=== PATIENT | female | born 1930 | race Caucasian/White ===

== ENCOUNTER 2017-09-18 16:42 | Inpatient (IN) | payer OTHER, MEDICAID ==
[~2017-09-18] VITALS: Ht 154.9 cm; Wt 34.5 kg
[2017-09-18 16:59] LABS: ABSOLUTE BASOPHILS 0.1 thou/uL (0.0-0.2); ABSOLUTE EOSINOPHILS 0.2 thou/uL (0.0-0.7); ABSOLUTE LYMPHOCYTES 1.7 thou/uL (0.8-5.3); ABSOLUTE NEUTROPHILS 5.8 thou/uL (1.6-8.1); BASOPHILS 1.1 %; HEMATOCRIT 41.2 % (37.0-47.0); HEMOGLOBIN 13.7 gm/dL (12.0-15.0); LYMPHOCYTES 19.3 %; MCH 29.6 pg (26.0-34.0); MCHC 33.2 g/dL (28.0-37.0); MCV 89.4 fL (80.0-100.0); MONOCYTES 11.1 %; MPV 8.2 fl. (7.2-11.1); NUCLEATED RBCS 0 /100WBC; PLATELET COUNT* 252 thou/uL (150-400); POLYS 66.5 %; RBC 4.61 mil/uL (4.20-5.00); RDW-CV 13.2 % (10.5-14.5); WBC 8.7 thou/uL (4.0-11.0)
[2017-09-18 17:05] VITALS: BP 206/105
[2017-09-18 17:14] LABS: ANION GAP 9 mmol/L (7-16); BUN 11 mg/dL (7-18); CALCIUM 9.3 mg/dL (8.5-10.1); CHLORIDE 106 mmol/L (98-107); CO2 27 mmol/L (21-32); GLUCOSE 152 mg/dL (70-99); POTASSIUM 3.4 mmol/L (3.5-5.1); SODIUM 142 mmol/L (136-145)
[2017-09-18 17:18] LABS: ALBUMIN 3.8 g/dL (3.4-5.0); ALKALINE PHOSPHATASE 106 U/L (46-116); SGOT 20 U/L (15-37); SGPT 16 U/L (30-65); TOTAL BILIRUBIN 0.4 mg/dL (<0.1-1.0); TOTAL PROTEIN 7.4 g/dL (6.4-8.2); TROPONIN-I LEVEL <0.06 ng/mL (<0.06)
[2017-09-18] MEDS ORDERED: ARICEPT 5 MG TAB5 MG PO (17:24)
[2017-09-18] MEDS ORDERED: LISINOPRIL20 MG PO (17:25)
[2017-09-18 17:30] LABS: PROTIME 9.9 Seconds (9.20-11.50)
[2017-09-18 17:49] LABS: URINE BILIRUBIN NEGATIVE (Negative); URINE BLOOD NEGATIVE (Negative); URINE CLARITY CLEAR; URINE COLOR YELLOW; URINE GLUCOSE-RANDOM NEGATIVE (Negative); URINE KETONES NEGATIVE (Negative); URINE LEUKOCYTES-REFLEX NEGATIVE (Negative); URINE NITRITE-REFLEX NEGATIVE (Negative); URINE PROTEIN NEGATIVE (Negative); URINE UROBILINOGEN 0.2 E.U./dl (0.2-1.0)
[2017-09-18 19:15] LABS: CALCIUM 9.5 mg/dL (8.5-10.1); MAGNESIUM 1.7 mg/dL (1.8-2.4); POTASSIUM 3.4 mmol/L (3.5-5.1)
[2017-09-18 20:21] VITALS: BP 126/70
[2017-09-18 20:30] VITALS: BP 148/72
[2017-09-18 23:53] VITALS: BP 148/72
[2017-09-19] VITALS (10 sets, daily range): BP systolic 152–189; BP diastolic 73–97
[2017-09-19 05:22] LABS: HEMATOCRIT 37.1 % (37.0-47.0); HEMOGLOBIN 12.2 gm/dL (12.0-15.0); MCH 29.3 pg (26.0-34.0); MCHC 32.9 g/dL (28.0-37.0); MCV 89.1 fL (80.0-100.0); MPV 8.2 fl. (7.2-11.1); RBC 4.17 mil/uL (4.20-5.00); RDW-CV 13.5 % (10.5-14.5); WBC 7.3 thou/uL (4.0-11.0)
[2017-09-19 05:51] LABS: CHOLESTEROL 206 mg/dL (<200); HDL CHOLESTEROL 53 mg/dL (>40); LDL CHOLESTEROL 138 mg/dL (<100); TC:HDL 3.9 Ratio (Not establshd); TRIGLYCERIDE 77 mg/dL (<150); VLDL 15 mg/dL (<40)
[2017-09-19 05:56] LABS: SERUM ASSESSMENT CLEAR
[2017-09-19 06:01] LABS: CALCIUM 8.8 mg/dL (8.5-10.1); CREATININE 0.8 mg/dL (0.6-1.3); MAGNESIUM 1.8 mg/dL (1.8-2.4); POTASSIUM 3.5 mmol/L (3.5-5.1)
--- NOTE | 2017-09-19 16:55 | EKG ---
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1930 Requested By: Deep Payne Order Number: [id number] MD: Baldo Macedo Measurements Intervals [place] Rate: 74 P: 63 WV: 156 QRS: -10 QRSD: 88 T: 71 QT: 435 QTc: 483 Interpretive Statements Sinus rhythm Atrial premature complexes Left atrial enlargement Borderline prolonged QT interval Compared to ECG 07/02/2017 16:30:05 Atrial premature complex(es) now present Atrial abnormality now present Electronically Signed On 09-19-2017 16:55:17 CDT by Baldo Macedo [email or web address] <ELECTRONICALLY SIGNED> By: Baldo Macedo MD, [facility] 09/19/17 [id number] Baldo Macedo MD, [facility] /EPI
[2017-09-20] VITALS (9 sets, daily range): BP systolic 144–202; BP diastolic 71–115
--- NOTE | 2017-09-20 14:27 | 2DMMODE ---
[place] [address] 2 D/M-MODE ECHOCARDIOGRAM Name: MICHEAL HIGGINBOTHAMEduardo Room: [address] IN [place]#: [id number] Admission: 09/18/17 Attend Phys: Bayron Quesada Discharge: Date of : 30 Date of Service: 09/20/17 1426 Report #: [id number] THIS REPORT FOR: //name// APPROVED REPORT Study performed: 09/20/2017 10:10:31 EXAM: Comprehensive 2D, Doppler, and color-flow Echocardiogram Patient Location: In-Patient Room #: [facility] Status: routine BSA: 1.36 HR: 102 bpm BP: 190/96 mmHg Rhythm: NSR Other Information Study Quality: Good Indications CVA/TIA Echo Enhancing Agent Indication: Rule out Shunt Agent(s) / Amount(s) Used: Agitated Saline 10 cc 2D Dimensions LVEF(%): 68.88 (>50%) IVSd: 11.81 (7-11mm) LVOT Diam: 19.86 (18-24mm) LVDd: 32.96 mm PWd: 10.45 (7-11mm) Ascending Ao: 29.26 (22-36mm) LVDs: 20.58 (25-40mm) Aortic Root: 30.02 mm Granados's LVEF: 68.88 % Aortic Valve AoV Peak Jimmy.: 1.25 m/s AO Peak Gr.: 6.30 mmHg LVOT Max P.77 mmHg AO Mean Gr.: 3.77 mmHg LVOT Mean P.08 mmHg LVOT Max V: 0.97 m/s AO V2 VTI: 25.11 cm LVOT Mean V: 0.69 m/s MILLY (VTI): 2.00 cm2 LVOT V1 VTI: 16.21 cm Mitral Valve E/A Ratio: 0.61 [place] [address] 2 D/M-MODE ECHOCARDIOGRAM Name: RACHAEL HIGGINBOTHAM Room: [address] IN .R.#: [id number] Admission: 09/18/17 Attend Phys: Bayron Quesada Discharge: Date of : 30 Date of Service: 09/20/17 1426 Report #: [id number] MV Decel. Time: 248.63 ms MV E Max Jimmy.: 0.55 m/s MV PHT: 72.10 ms MVA (PHT): 3.05 cm2 TDI E/Lateral E': 9.17 E/Medial E': 7.86 Medial E' Jimmy.: 0.07 m/s Lateral E' Jimmy.: 0.06 m/s Pulmonary Valve PV Peak Jimmy.: 1.36 m/s PV Peak Gr.: 7.36 mmHg Tricuspid Valve TR Peak Gr.: 31.43 mmHg RVSP: 36.00 mmHg Left Ventricle The left ventricle is normal size. There is normal LV segmental wall motion. Mild to moderate concentric left ventricular hypertrophy. Left ventricular systolic function is normal. The left ventricular ejection fraction is within the normal range. LVEF is 60-65%. Grade I - abnormal relaxation pattern. Right Ventricle The right ventricle is normal size. The right ventricular systolic function is normal. Atria The left atrium size is normal. Interatrial septum is intact without evidence of ASD or PFO. The right atrium size is normal. Aortic Valve Mild aortic valve sclerosis. Mild aortic regurgitation. There is no aortic valvular stenosis. Mitral Valve The mitral valve is normal in structure. Trace mitral regurgitation. No evidence of mitral valve stenosis. Tricuspid Valve The tricuspid valve is normal in structure. Mild tricuspid regurgitation. The RVSP is 35-40 mmHg. Pulmonic Valve The pulmonary valve is normal in structure. There is no pulmonic valvular [place] [address] 2 D/M-MODE ECHOCARDIOGRAM Name: RACHAEL HIGGINBOTHAM Room: [address] IN M.R.#: [id number] Admission: 09/18/17 Attend Phys: Bayron Quesada Discharge: Date of : 30 Date of Service: 09/20/17 1426 Report #: [id number] Great Vessels The aortic root is normal in size. IVC is normal in size and collapses with >50% inspiration Pericardium There is no pericardial effusion. <Conclusion> The left ventricle is normal size. Mild to moderate concentric left ventricular hypertrophy. Left ventricular systolic function is normal. The left ventricular ejection fraction is within the normal range. LVEF is 60-65%. Grade I - abnormal relaxation pattern. The right ventricle is normal size. The left atrium size is normal. Mild aortic valve sclerosis. Mild aortic regurgitation. There is no aortic valvular stenosis. The mitral valve is normal in structure. Trace mitral regurgitation. The tricuspid valve is normal in structure. Mild tricuspid regurgitation. The RVSP is 35-40 mmHg. IVC is normal in size and collapses with >50% inspiration There is no pericardial effusion. There is normal LV segmental wall motion. <ELECTRONICALLY SIGNED> By: Dominic Garcia MD, FACC 09/20/17 1426 1426 1426 Dominic Garcia MD, FACC /INF
[2017-09-21 00:07] VITALS: BP 129/59
[2017-09-21 03:32] VITALS: BP 142/82
[2017-09-21 08:00] VITALS: BP 208/115
[2017-09-21 15:42] VITALS: BP 144/60
[2017-09-21 20:00] VITALS: BP 138/72
[2017-09-22 00:01] VITALS: BP 143/73
[2017-09-22 04:00] VITALS: BP 155/91
[2017-09-22 09:30] VITALS: BP 147/69
[2017-09-22 10:43] LABS: POC CA IONIZED 4.9 mg/dL (4.5-5.3); POC CREATININE 0.9 mg/dL (0.6-1.3); POC HEMOGLOBIN 14.3 g/dL (12.0-17.0); POC POTASSIUM 3.4 mmol/L (3.5-4.9)
[2017-09-22 12:19] VITALS: BP 174/84
[2017-09-22 15:46] VITALS: BP 182/94
[2017-09-23] VITALS: BP 187/142
[2017-09-23 04:00] VITALS: BP 158/95
[2017-09-23 08:00] VITALS: BP 160/86
[2017-09-23 11:26] VITALS: BP 141/91
[2017-09-23 14:42] LABS: URINE BILIRUBIN NEGATIVE (Negative); URINE BLOOD NEGATIVE (Negative); URINE CLARITY CLEAR; URINE COLOR YELLOW; URINE GLUCOSE-RANDOM NEGATIVE (Negative); URINE KETONES 1+ (Negative); URINE LEUKOCYTES-REFLEX TRACE (Negative); URINE NITRITE-REFLEX NEGATIVE (Negative); URINE PROTEIN 1+ (Negative); URINE UROBILINOGEN 0.2 E.U./dl (0.2-1.0)
[2017-09-23 14:55] LABS: SQUAMOUS 0-3 Few /LPF (0-3)
[2017-09-23 14:56] LABS: URINE RBC None Seen /HPF (0-2); URINE WBC-REFLEX 6-15 Few /HPF (0-5)
[2017-09-23 14:57] LABS: CRYSTALS None Seen /LPF (None Seen); HYALINE CASTS 0-3 Few /LPF (None Seen); MUCUS 0-3 Light strn/LPF (None Seen)
[2017-09-23 20:00] VITALS: BP 137/66
[2017-09-24] VITALS: BP 178/93
[2017-09-24 04:20] VITALS: BP 140/67
[2017-09-24 08:00] VITALS: BP 167/64
[2017-09-24 15:01] VITALS: BP 130/69
[2017-09-24 16:32] VITALS: BP 112/50; BP 148/93
[2017-09-24] MEDS ORDERED: LIPITOR40 MG PO (17:20)
[2017-09-24] MEDS ORDERED: ASPIRIN EC81 M1 PO (17:22)
[2017-09-24] MEDS ORDERED: B12INJ IM (17:23)
[2017-09-24] MEDS ORDERED: MACROBID 100 M100 M2 PO (17:28)
[2017-09-24] MEDS ORDERED: MELATONIN5 M1 PO (17:30)
[2017-09-24 17:34] VITALS: BP 148/93
--- NOTE | 2017-09-29 14:26 | CON ---
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 Previous level of function sounds like modified independent to independent with activities of daily living. She does live alone. She is legally blind. Current level of function, there is no data on occupational therapy at this time. She is maximum assistance with physical therapy, ambulating 5 feet. She is currently being seen by Speech Language Pathology, and she is on a mechanical soft diet. She will have ongoing needs with her therapies. MEDICATIONS: Reviewed and are available in the MAR. PAST MEDICAL AND SURGICAL HISTORY: Hypertension, colon cancer, history of 7 stents. SOCIAL HISTORY: No recreational drug use. Every day smoker, 1 pack per day for 70 years. No significant alcohol use. REVIEW OF SYSTEMS: A 14-point review of systems is done and is negative except as mentioned in the HPI, specifically no fever, chest pain, shortness of breath or abdominal pain. PHYSICAL EXAMINATION: GENERAL: Alert, oriented, in no apparent distress. VITAL SIGNS: Reviewed and are stable. HEENT: Head atraumatic, normocephalic. Pupils equal, round, reactive. ABDOMEN: Soft, nontender, nondistended. ALLERGIES: MORPHINE AND PENICILLINS. FAMILY HISTORY: COPD. ASSESSMENT: 1. Bilateral posterior cerebral artery cerebrovascular accident. 2. Legally blind. 3. Alterations in activities of daily living. PLAN: 1. The patient will need ongoing physical and occupational therapy. 2. She may need support at home. She does live alone, [place] [address] CONSULTATION Name: RACHAEL HIGGINBOTHAM Room: [address]#: [id number] Admission: 09/18/17 Attend Phys: Bayron Martinez, Discharge: 09/24/17 Date of : 30 Report #: [id number] bilateral NURSE REVIEWER CVA, so disposition will be important. We will follow. <ELECTRONICALLY SIGNED> By: Elizabeth Reeder DO 09/29/17 1426 1259 [id number] Reeder DO /nt
== END 2017-09-24 18:45 | DRG 64 ==
LOC: M.ERS 16:42 → M.2W 18:19 → M.ICU 18:19 → M.TBA-ER 18:19 → M.2W 19:50 → M.ICU 09-19 16:44 → M.2W 09-20 11:35
PROVIDERS: Family Medicine; Internal Medicine; ADMIT Family Medicine
PROC: B24BZZ4 Ultrasonography of Heart with Aorta, Transesophageal (ICD-10-PCS; principal; 2017-09-20)
DX: I63.133 Cerebral infarction due to embolism of bilateral carotid arteries (principal); G93.41 Metabolic encephalopathy; G81.91 Hemiplegia, unspecified affecting right dominant side; I10 Essential (primary) hypertension; I16.0 Hypertensive urgency; H54.8 Legal blindness, as defined in USA; J44.9 Chronic obstructive pulmonary disease, unspecified; E78.5 Hyperlipidemia, unspecified; R22.1 Localized swelling, mass and lump, neck; F03.90 Unspecified dementia, unspecified severity, without behavioral disturbance, psychotic disturbance, mood disturbance, and anxiety; E53.8 Deficiency of other specified B group vitamins; G31.9 Degenerative disease of nervous system, unspecified; H35.30 Unspecified macular degeneration; R47.1 Dysarthria and anarthria; Z66 Do not resuscitate; E04.1 Nontoxic single thyroid nodule; I25.10 Atherosclerotic heart disease of native coronary artery without angina pectoris; E87.6 Hypokalemia; F17.210 Nicotine dependence, cigarettes, uncomplicated; Z85.038 Personal history of other malignant neoplasm of large intestine; Z79.899 Other long term (current) drug therapy; Z71.6 Tobacco abuse counseling; Z88.0 Allergy status to penicillin; Z88.5 Allergy status to narcotic agent; Z82.5 Family history of asthma and other chronic lower respiratory diseases

== ENCOUNTER 2017-09-24 16:11 | Inpatient (IN) | payer OTHER, MEDICAID ==
[~2017-09-24] VITALS: Ht 154.9 cm; Wt 40.4 kg
[~2017-09-24 16:11] MED LIST: ARICEPT 5 MG TAB5 MG PO; LISINOPRIL20 MG PO
[2017-09-24] MEDS ORDERED: LIPITOR40 MG PO (17:20)
[2017-09-24] MEDS ORDERED: ASPIRIN EC81 M1 PO (17:22)
[2017-09-24] MEDS ORDERED: B12INJ IM (17:23)
[2017-09-24] MEDS ORDERED: MACROBID 100 M100 M2 PO (17:28)
[2017-09-24] MEDS ORDERED: MELATONIN5 M1 PO (17:30)
[2017-09-24 19:50] VITALS: BP 147/93
[2017-09-25 04:10] LABS: HEMATOCRIT 38.4 % (37.0-47.0); HEMOGLOBIN 12.8 gm/dL (12.0-15.0); MCH 29.8 pg (26.0-34.0); MCHC 33.3 g/dL (28.0-37.0); MCV 89.6 fL (80.0-100.0); MPV 9.4 fl. (7.2-11.1); RBC 4.29 mil/uL (4.20-5.00); RDW-CV 13.1 % (10.5-14.5); WBC 9.9 thou/uL (4.0-11.0)
[2017-09-25 04:23] LABS: CALCIUM 9.3 mg/dL (8.5-10.1); CREATININE 0.9 mg/dL (0.6-1.3)
[2017-09-25 08:25] VITALS: BP 113/67
[2017-09-25 20:00] VITALS: BP 144/79
[2017-09-26 08:25] VITALS: BP 174/92
[2017-09-26 20:00] VITALS: BP 165/84
[2017-09-27 08:26] VITALS: BP 137/83
[2017-09-27 20:39] VITALS: BP 173/72
[2017-09-28 07:00] VITALS: BP 150/88
[2017-09-28 20:10] VITALS: BP 155/70
[2017-09-29 08:06] VITALS: BP 145/61
[2017-09-29 19:30] VITALS: BP 150/70
[2017-09-30 08:38] VITALS: BP 188/89
[2017-09-30 20:00] VITALS: BP 196/93
[2017-10-01 05:35] LABS: CALCIUM 8.8 mg/dL (8.5-10.1); CREATININE 0.8 mg/dL (0.6-1.3); MAGNESIUM 1.6 mg/dL (1.8-2.4); POTASSIUM 3.7 mmol/L (3.5-5.1)
[2017-10-01 07:00] VITALS: BP 182/94
[2017-10-01 20:27] VITALS: BP 113/66
[2017-10-02 07:30] VITALS: BP 133/64
[2017-10-02 20:33] VITALS: BP 111/45
[2017-10-03 08:50] VITALS: BP 157/77
[2017-10-03 19:00] VITALS: BP 140/97
[2017-10-04 08:07] VITALS: BP 187/92
[2017-10-04 21:22] VITALS: BP 139/71
[2017-10-05 08:20] VITALS: BP 171/86
[2017-10-05 19:30] VITALS: BP 109/48
[2017-10-06 08:00] VITALS: BP 186/86
[2017-10-06 20:45] VITALS: BP 143/75
[2017-10-07 08:12] VITALS: BP 109/85
[2017-10-07 20:27] VITALS: BP 148/81
[2017-10-08 08:18] VITALS: BP 183/90
[2017-10-08 20:28] VITALS: BP 149/71
[2017-10-09 08:02] VITALS: BP 156/79
[2017-10-09 20:00] VITALS: BP 145/67
[2017-10-10 07:43] VITALS: BP 153/85
[2017-10-10 20:12] VITALS: BP 183/101
[2017-10-10 21:30] VITALS: BP 193/94
[2017-10-11 02:18] VITALS: BP 186/91
[2017-10-11 04:18] VITALS: BP 189/94
[2017-10-11 08:14] VITALS: BP 150/83
[2017-10-11 20:11] VITALS: BP 117/49
[2017-10-12 08:00] VITALS: BP 168/99
[2017-10-12 20:00] VITALS: BP 152/75
[2017-10-13 08:00] VITALS: BP 145/83
[2017-10-13 20:00] VITALS: BP 141/65
[2017-10-14 01:38] VITALS: BP 141/65
[2017-10-14] MEDS ORDERED: ZOLOFT50 MG PO (01:44)
[2017-10-14 08:25] VITALS: BP 175/79
[2017-10-14 20:00] VITALS: BP 151/64
[2017-10-15 01:39] VITALS: BP 141/65
[2017-10-15 08:08] VITALS: BP 143/67
[2017-10-15 10:30] VITALS: BP 141/65
[2017-10-15 13:13] VITALS: BP 141/65
--- NOTE | 2017-10-26 15:21 | D ---
[facility] [address] [place] [address] DISCHARGE SUMMARY Name: RACHAEL HIGGINBOTHAM Room: [address] IN M.R.#: [id number] Admission: 09/24/17 Attend Phys: Elizabeth Reeder DO Discharge: 10/15/17 Date of : 30 Report #: [id number] THIS REPORT FOR: //name// CC: Elizabeth Preciado DATE OF SERVICE: 10/14/2017 DISCHARGE DIAGNOSIS: Cerebrovascular accident. DISCHARGE DISPOSITION: To the home setting with home health PT, OT, nursing and speech therapy. She will follow with her primary care physician within one week and Neurology within one week. Notifications for physician were given. She will maintain a regular carb-controlled diet. Fall precautions. Medications were reviewed and reconciled by myself and are available in the MAR. She did need a prescription for Zoloft, which she was started on during this hospital stay. DISCHARGE PHYSICAL EXAMINATION: GENERAL: Alert, oriented, in no apparent distress. VITAL SIGNS: Reviewed and are stable. HEENT: Head atraumatic, normocephalic. Pupils equal, round and reactive. ABDOMEN: Soft, nontender and nondistended. NEUROLOGIC: Cranial nerves 5/5 strength in the bilateral upper and lower extremities. SKIN: Warm and dry. No rashes or lesions noted. <ELECTRONICALLY SIGNED> By: Elizabeth Reeder DO 10/26/17 1521 1229 [id number] Reeder DO /cezar
--- NOTE | 2017-10-26 15:21 | H ---
[address] [address] HISTORY AND PHYSICAL Name: RACHAEL HIGGINBOTHAM Room: [address] IN M.R.#: [id number] Admission: 09/24/17 Attend Phys: Elizabeth Reeder DO Discharge: 10/15/17 Date of : 30 Report #: [id number] THIS REPORT FOR: //name// CC: Elizabeth Preciado DATE OF SERVICE: 09/24/2017 HISTORY OF PRESENT ILLNESS: This is an 87-year-old female known from previous consultation as she was followed on acute. She was admitted to inpatient rehabilitation to facilitate safe discharge home, status post acute hospitalization starting on 09/18/2017 where she was brought in from EMS with history of headache, hypertension and slurred speech. She had had high blood pressures. She was diagnosed with bilateral cerebrovascular accidents in the left sekou, bilateral occipital lobes, left posterior thalamus. She does have bilateral ICA stenosis. She had ongoing weakness. She also is legally blind, has macular degeneration and multiple medical comorbidities. She was previously living at home with supervision and assistance of her son. During her acute stay, she did have extension of her cerebrovascular accident, but has been participating in therapies and does have needs in PT, OT and speech language pathology. Previous level of function was modified independent to minimum assistance with activities of daily living. Current level of function is moderate assistance to maximum assistance depending on therapy, activity and time of day. She is ambulating 30 feet with front-wheeled walker, is utilizing commode. She is incontinent of bowel and bladder at this time. She has [id number] impairment of comprehension, expression, social interaction, problem solving and memory. She does have some ongoing dysphagia and aphasia. No significant changes since the preadmission screening. Estimated length of stay is 22-24 days with discharge disposition to the home setting where again she does have support of her family that can provide supervision and assistance in the home setting. PAST MEDICAL HISTORY: Hypertension, dementia, CAD, history of cancer, headache, macular degeneration. She is legally blind. She has low B12, history of an MA. PAST SURGICAL HISTORY: Cardiac stents x 7. MEDICATIONS: Reviewed and reconciled by myself and are available in the MAR. ALLERGIES: MORPHINE AND PENICILLIN. SOCIAL HISTORY: She currently smokes 1 pack per day. No alcohol or illicit drug use. FAMILY HISTORY: [place]iac [place] [address] HISTORY AND PHYSICAL Name: RACHAEL HIGGINBOTHAM Room: [address]#: [id number] Admission: 09/24/17 Attend Phys: Elizabeth Reeder DO Discharge: 10/15/17 Date of : 30 Report #: [id number] REVIEW OF SYSTEMS: Difficult to obtain due to dementia and current aphasia and dysphagia; however, no noticeable changes in review of systems including fever, chest pain, shortness of breath, abdominal pain or distention. PHYSICAL EXAMINATION: GENERAL: Alert, in no apparent distress. VITAL SIGNS: Reviewed and are stable. HEENT: Atraumatic, normocephalic. Pupils are equal, round, reactive. ABDOMEN: Soft, nontender, nondistended. NEUROLOGIC: Cranial nerves 2-12 are grossly intact with no focal neuro deficits. She does have weakness in the bilateral upper and lower extremities. SKIN: Warm and dry. No rashes or lesions noted. ASSESSMENT: 1. Bilateral cerebrovascular accidents in bilateral cerebellum, left sekou, bilateral occipital lobes, left posterior thalamus. 2. Bilateral ICA stenosis. 3. Multiple medical comorbidities including hypertension, coronary artery disease, uncontrolled hypertension, headache, macular degeneration. 4. She is also legally blind. 5. She does have a history of dementia. PLAN: 1. Admission to inpatient rehabilitation to facilitate safe discharge home where she does have supervision and support from her family including her son. 2. PT, OT, speech, language, case management, nursing and HIMS to make evaluations and recommendations. 3. Plan of care is pending. 4. We will team her weekly and make changes to plan of care as needed. 5. Mechanical chopped soft diet, nectar thick liquids. 6. CBC, BMP in the a.m. after admission. 7. Continue medications as previously ordered. <ELECTRONICALLY SIGNED> By: Elizabeth Reeder DO 10/26/17 1521 [id number] Reeder DO /nt
== END 2017-10-15 17:13 | disposition home health service (06) | DRG 65 ==
LOC: M.REH 16:11
PROVIDERS: Internal Medicine; ADMIT Physical Medicine & Rehabilitation
DX: I63.233 Cerebral infarction due to unspecified occlusion or stenosis of bilateral carotid arteries (principal); G81.91 Hemiplegia, unspecified affecting right dominant side; I10 Essential (primary) hypertension; R47.81 Slurred speech; I66.8 Occlusion and stenosis of other cerebral arteries; H54.8 Legal blindness, as defined in USA; H35.30 Unspecified macular degeneration; I25.10 Atherosclerotic heart disease of native coronary artery without angina pectoris; F03.90 Unspecified dementia, unspecified severity, without behavioral disturbance, psychotic disturbance, mood disturbance, and anxiety; F17.210 Nicotine dependence, cigarettes, uncomplicated; R47.1 Dysarthria and anarthria; R13.10 Dysphagia, unspecified; Z66 Do not resuscitate; J44.9 Chronic obstructive pulmonary disease, unspecified; E87.6 Hypokalemia; E78.5 Hyperlipidemia, unspecified; E04.1 Nontoxic single thyroid nodule; G31.9 Degenerative disease of nervous system, unspecified; Z85.9 Personal history of malignant neoplasm, unspecified; I25.2 Old myocardial infarction; Z95.5 Presence of coronary angioplasty implant and graft; Z88.0 Allergy status to penicillin; Z88.6 Allergy status to analgesic agent; Z79.82 Long term (current) use of aspirin; Z79.899 Other long term (current) drug therapy; Z71.6 Tobacco abuse counseling; Z80.9 Family history of malignant neoplasm, unspecified; Z82.49 Family history of ischemic heart disease and other diseases of the circulatory system